=== PATIENT | male | born 1945 | race Caucasian/White ===

== ENCOUNTER → 2016-08-15 | Outpatient (CLI) | payer OTHER ==
[2015-10-11 12:37] VITALS: BP 116/77
== END ==
LOC: LAB 07:43
PROVIDERS: ATTEND Internal Medicine
DX: R97.20 Elevated prostate specific antigen [PSA] (principal); E29.1 Testicular hypofunction
CPT/HCPCS: 36415; 84153

== ENCOUNTER → 2017-02-17 | Outpatient (CLI) | payer OTHER ==
[2015-10-11 12:37] VITALS: BP 116/77
== END ==
LOC: LAB 11:09
PROVIDERS: ATTEND Internal Medicine
DX: R97.20 Elevated prostate specific antigen [PSA] (principal)
CPT/HCPCS: 36415; 84153

== ENCOUNTER 2017-06-11 08:23 | Emergency (ER) | payer OTHER ==
--- NOTE | 2017-06-11 08:27 | DR.UPM ---
HPI - Time Seen Time seen: 08:45 - HPI Comment HPI Comment: TURP DONE 05/26/2017. HELD ASA AND PLAVIX. RESTARTED THESE MEDS 5 DAYS AGO. PATIENT PASSING BLOOD AND BLOOD CLOT. NO FEVER. HAVIND SEVERE RECTAL PAIN ALSO. - Complaint Chief Complaint Doctors Comments: URINARY RETENTION AND LOWER ABDOMINAL PAIN SINCE 5:00AM TODAY. - Reviewed Nurses Notes Reviewed: Yes - Source History Provided: Patient - Mode of Arrival Mode of Arrival: Ambulatory - Duration Duration: Constant Duration: Days Min/Hrs: Hours - Context Urinary Symptoms: Dysuria, Hematuria History of: Recent post-op - Severity Pain: Moderate Inability to Void: Moderate - Location Pain Location: Suprapubic, Abdomen - Quality Penile Discharge: Blood - Modifying Factors Medications: None - Associated Signs and Symptoms Associated Signs and Symptoms: Abdominal Pain PMH - PMH Past Medical History: Coronary Artery Disease, Hypertension, NM Past Surgical History: Yes Surgical History: Angioplasty/Stents - Family History Family Medical History: NM - Social History Do you use any recreational Drugs:: No ROS - Review of Systems Constitutional: No Symptoms Reported Eyes: No Symptoms Reported ENTM: No Symptoms Reported Respiratoy: No Symptoms Reported Cardiovascular: No Symptoms Reported Gastrointestinal/Abdominal: Abdominal Pain Genitourinary: Dysuria, Pain, Bleeding Neurological: No Symptoms Reported Musculoskeletal: No Symptoms Reported Integumentary: No Symptoms Reported Hematologic/Lymphatic: No Symptoms Reported Endocrine: No Symptoms Reported All Other Systems: Reviewed and Negative PE - Vital Signs Vitals: Temperature 97.4 F Pulse Rate [Right Radial] 64 Pulse Rate 74 Respiratory Rate 18 Blood Pressure [Right Arm] 163/80 Blood Pressure [Left Arm] 143/78 Blood Pressure 170/81 O2 Sat by Pulse Oximetry 97 - General Limitations: No Limitations General Appearance: Alert - Head Head Exam: Normal Inspection - Eyes Eye exam: Normal Appearance - ENT ENT Exam: Normal External Ear Exam - Neck Neck Exam: Trachea Midline - Chest Chest Inspection: Symmetric Chest Wall Rise - Respiratory Respiratory Exam: Normal Lung Sounds Bilat Respiratory Exam: Bilateral Clear to Auscultation - Cardiovascular Cardiovascular Exam: Regular Rate, Normal Rhythm, Normal Heart Sounds - Abdominal Exam Abdominal Exam: Normal Bowel Sounds, Soft, Tenderness Abdominal Tenderness: RLQ, LLQ, Suprapubic - Rectal Rectal Exam: Deferred - Genitourinary Exam: Male: Deferred - Extremities Extremities Exam: Normal Inspection - Back Back Exam: Normal Inspection - Neurologic Neurological Exam: Alert, Oriented X3 - Psychiatric Psychiatric Exam: Anxious - Skin Skin Exam: Normal Color MDM - Differential Diagnosis Differential Diagnosis: Bladder Outlet Obstructio, Epidydymitis, Prostatitis, Post-Op Complication, Urethritis, Urinary Retention, UTI Course - Treatment Treatment: SEE ORDERS. 3WAY CATH WITH CONTINOUS IRRIGATION IN ED. - Consultation Consultation Comments: DR. MOON, ED [facility] ACCEPTED PATIENT FOR TRANSFER. DR. DONATO, PATIENTS UROLOGIST AWARE OF TRANSFER PER TRANSFER CORDINATOR. - Education/Counseling Education/Counseling: Patient, Education Educated On: Diagnosis ROR - Labs Reviewed Laboratory Results Reviewed?: Yes Result Diagrams: 06/11/17 13:43 06/11/17 08:53 Laboratory: WBC 9.5 X10^3/uL (3.6-10.0) 06/11/17 08:53 RBC 5.27 X10^6/uL (4.7-6.0) 06/11/17 08:53 Hgb 14.0 g/dL (13.5-18.0) 06/11/17 13:43 Hct 41.3 % (42.0-54.0) L 06/11/17 13:43 MCV 85.4 fL (80.0-100.0) 06/11/17 08:53 MCH 29.4 pg (27.0-34.0) 06/11/17 08:53 MCHC 34.4 g/dL (33.0-35.0) 04 08:53 RDW 13.0 % (11.6-16.5) 06/11/17 08:53 Plt Count 241 X10^3/uL (150.0-450.0) 06/11/17 08:53 MPV 8.9 fL (7.4-11.0) 06/11/17 08:53 Neut % (Auto) 80.9 % (42.0-75.0) H 06/11/17 08:53 Lymph % (Auto) 10.9 % (21.0-51.0) L 06/11/17 08:53 Coryell % (Auto) 5.2 % (0.0-13.0) 06/11/17 08:53 Eos % (Auto) 0.5 % (0.9-2.9) L 06/11/17 08:53 Baso % (Auto) 2.5 % (0.2-1.0) H 06/11/17 08:53 Neut # (Auto) 7.7 x10^3/uL (2.2-4.8) H 06/11/17 08:53 Lymph # (Auto) 1.0 X10^3/uL (1.3-2.9) L 06/11/17 08:53 Coryell # (Auto) 0.5 x10^3/uL (0.3-0.8) 06/11/17 08:53 Eos # (Auto) 0.0 x10^3/uL (0.0-0.2) 06/11/17 08:53 Baso # (Auto) 0.2 X10^3/uL (0.0-0.1) H 06/11/17 08:53 Absolute Nucleated RBC 0.0 /100WBC 06/11/17 08:53 INR Target Range - 06/11/17 09:06 INR 1.01 (0.8-1.3) 06/11/17 09:06 APTT 29.8 SECONDS (22.9-36.5) 06/11/17 09:06 PTT Comment - 06/11/17 09:06 Sodium 138 mmol/L (136-145) 06/11/17 08:53 Corrected Sodium 140 mmol/L (136-145) 06/11/17 08:53 Potassium 4.0 mmol/L (3.5-5.1) 06/11/17 08:53 Chloride 106 mmol/L (98-107) 06/11/17 08:53 Carbon Dioxide 18.8 mmol/L (21-32) L 06/11/17 08:53 BUN 25 mg/dL (7-18) H 06/11/17 08:53 Creatinine 0.88 mg/dL (0.70-1.30) 06/11/17 08:53 Est GFR (MDRD) Af Amer > 60 (>60) 06/11/17 08:53 Est GFR (MDRD) Non-Af > 60 (>60) 06/11/17 08:53 Glucose 173 mg/dL (65-99) H 06/11/17 08:53 Lactic Acid 2.5 mmol/L (0.4-2.0) H 06/11/17 09:06 Calcium 8.1 mg/dL (8.5-10.1) L 06/11/17 08:53 Corrected Calcium TNP 06/11/17 08:53 Total Bilirubin 0.50 mg/dL (0.2-1.0) 06/11/17 08:53 AST 23 Units/L (15-37) 06/11/17 08:53 ALT 42 Units/L (12-78) 06/11/17 08:53 Alkaline Phosphatase 74 Units/L (46-116) 06/11/17 08:53 C-Reactive Protein 1.80 mg/L (0-3.0) 06/11/17 08:53 Total Protein 7.0 g/dL (6.4-8.2) 06/11/17 08:53 Albumin 3.6 g/dL (3.4-5.0) 06/11/17 08:53 Globulin 3.4 g/dL (2.5-4.5) 06/11/17 08:53 Albumin/Globulin Ratio 1.1 Ratio (1.1-2.1) 06/11/17 08:53 - XRAY XRAY Findings: REPORT DISCUSS WITH PATIENT AND HIS FAMILY. - Diagnosis Discharge Problem: Urinary obstruction Abdominal pain Qualifiers: Abdominal location: generalized Qualified Code(s): R10.84 - Generalized abdominal pain - Discharge Plan Disposition: XF [facility] Condition: Stable - Follow ups/Referrals Follow ups/Referrals: Ghanshyam Angel [Primary Care Provider] - 3 days - Instructions
[2017-06-11] MEDS ORDERED: ZOFRAN INJ 4 MG VIAL IVP ONE (08:33)
[2017-06-11] MEDS ORDERED: ZOFRAN INJ 4 MG VIAL ONE (08:33)
[2017-06-11] MEDS ORDERED: NS 1000 ML 1,000 ML IV ONE ×2 (08:33→11:41)
[2017-06-11] MEDS ORDERED: MORPHINE SULFATE INJ 4 MG IVP ONE (08:33)
[2017-06-11] MEDS ORDERED: MORPHINE SULFATE INJ 4 MG ONE (08:35)
[2017-06-11] MEDS ORDERED: NS 1000 ML 1,000 ML ONE ×2 (08:40→11:29)
[2017-06-11 08:48] VITALS: BMI 26.7
[2017-06-11 09:24] LABS: BASOPHILS # (AUTO) 0.2 X10^3/uL (0.0-0.1); BASOPHILS % (AUTO) 2.5 % (0.2-1.0); EOSINOPHILS % (AUTO) 0.5 % (0.9-2.9); HEMOGLOBIN 15.5 g/dL (13.5-18.0); LYMPHOCYTES % (AUTO) 10.9 % (21.0-51.0); MEAN CORPUSCULAR HEMOGLOBIN 29.4 pg (27.0-34.0); MEAN CORPUSCULAR HGB CONC 34.4 g/dL (33.0-35.0); MEAN CORPUSCULAR VOLUME 85.4 fL (80.0-100.0); MEAN PLATELET VOLUME 8.9 fL (7.4-11.0); MONOCYTES # (AUTO) 0.5 x10^3/uL (0.3-0.8); MONOCYTES % (AUTO) 5.2 % (0.0-13.0); NEUTROPHILS # (AUTO) 7.7 x10^3/uL (2.2-4.8); NEUTROPHILS % (AUTO) 80.9 % (42.0-75.0); PLATELET COUNT 241 X10^3/uL (150.0-450.0); RED BLOOD COUNT 5.27 X10^6/uL (4.7-6.0); WHITE BLOOD COUNT 9.5 X10^3/uL (3.6-10.0)
[2017-06-11 09:30] LABS: ALANINE AMINOTRANSFERASE 42 Units/L (12-78); ALBUMIN 3.6 g/dL (3.4-5.0); ALKALINE PHOSPHATASE 74 Units/L (46-116); ASPARTATE AMINO TRANSFERASE 23 Units/L (15-37); BLOOD UREA NITROGEN 25 mg/dL (7-18); CALCIUM 8.1 mg/dL (8.5-10.1); CARBON DIOXIDE 18.8 mmol/L (21-32); CHLORIDE 106 mmol/L (98-107); COR NA(FOR HYPERGLY) 140 mmol/L (136-145); CREATININE 0.88 mg/dL (0.70-1.30); SODIUM 138 mmol/L (136-145); eGFR BLACK RACES > 60 (>60); eGFR NON BLACK RACES > 60 (>60)
[2017-06-11] MEDS ORDERED: DILAUDID INJ ONE ×2 (10:07→12:39)
[2017-06-11] MEDS: DILAUDID INJ IVP PRN ×2 (10:15→10:30)
--- NOTE | 2017-06-11 10:48 | CT ---
HISTORY: Patient unable to wait. Patient had TURP Chem 05/26/2017. Study: CT abdomen and pelvis without IV or oral contrast Comparison: 05/06/2012 Technique: Multiple axial images of the abdomen and pelvis were obtained from the lung bases to the pubic symphy sis without the administration of IV or oral contrast. Coronal and sagittal images are also reviewed . Dose reduction techniques utilized automatic exposure control. Findings: There are changes of mild COPD in the lung bases. Right and left coronary artery calcifications are identified. The liver, spleen, pancreas and adrenal glands are unremarkable in their CT appearance. T he gallbladder is unremarkable in its CT appearance. 83 mm nonobstructing stone is present involving the left kidney. There is 1.8 cm simple cyst in the midpole region of the right kidney. No solid mass , stone or hydronephrosis is seen. Atherosclerotic calcifications are present involving the miller of the abdominal aorta without aneurysm formation. No significant mesenteric lymphadenopathy or strandi ng can be observed. No free fluid or free air is seen within the abdomen. No bowel wall thickening or bowel dilatation is present. There is again uncomplicated appearing descending and sigmoid colon diverticulosis.. A Hernandez catheter is present within the urinary bladder. There is what appears to rep resent clotted blood present within the urinary bladder. This has a somewhat irregular margin and me asures about 6.7 x 7.9 x 8.9 cm. Even though the Hernandez catheter is present, the urinary bladder appea rs to be distended to about 15.3 cm The bony structures are grossly intact. IMPRESSION: Blood clots present within the urinary bladder which is distended. A Hernandez catheter is present. No hy dronephrosis is seen. Reported By:
[2017-06-11] MEDS ORDERED: NS IRRIGATION 3000 ML ONE ×2 (10:52→13:10)
[2017-06-11] MEDS ORDERED: CIPRO IV 400 MG PREMIX* 400 MG/200 ML IV.SOLN. IV ONE ×2 (11:22→11:27)
[2017-06-11 13:30] VITALS: BP 163/80
[2017-06-11 13:52] LABS: HEMATOCRIT 41.3 % (42.0-54.0)
== END 2017-06-11 14:11 | disposition short-term general hospital (02) ==
LOC: ER 08:29
DX: N13.9 Obstructive and reflux uropathy, unspecified (principal); R10.84 Generalized abdominal pain
CPT/HCPCS: 36415; 51702; 74176; 80053; 83605; 85014; 85018; 85025; 85610; 85730; 86140; 87040; 96365; 96367; 96374; 96375; 99284; 99285; A4222; J0744; J1170; J2270; J2405